=== PATIENT | male | born 1970 | race Caucasian/White ===

== ENCOUNTER 2017-01-26 19:38 | Emergency (ER) | payer MEDICAID ==
[2017-01-26 21:43] LABS: PLATELET COUNT 259 x10^3mcL (130-400); RED CELL DISTRIBUTION WIDTH 13.5 % (11.5-14.5)
[2017-01-26 21:53] LABS: CARBON DIOXIDE 31.8 mmol/L (21-32); CHLORIDE SERUM 102 mmol/L (98-107); CREATININE SERUM 0.8 mg/dL (0.7-1.3); GFR1 > 60 mL/min; GLUCOSE SERUM 103 mg/dL (74-106); SODIUM SERUM 140 mmol/L (136-145)
[2017-01-26 22:00] LABS: ALBUMIN 3.5 g/dL (3.4-5.0); ALKALINE PHOSPHATASE 86 U/L (46-116); ALT/SGPT 43 U/L (16-63); AST/SGOT 29 U/L (15-37); BILIRUBIN TOTAL 0.3 mg/dL (0.20-1.00)
[2017-01-26 22:02] LABS: TOTAL PROTEIN, SERUM 8.3 g/dL (6.4-8.2)
[2017-01-27 04:48] VITALS: BP 125/76
== END 2017-01-27 04:48 | disposition home or self-care (01) ==
LOC: ED 19:38
PROVIDERS: Emergency Medicine Emergency Medical Services
DX: J18.9 Pneumonia, unspecified organism (principal)
CPT/HCPCS: 83880; 85378; J1885; Q0092; Q9967